=== PATIENT | female | born 1950 | race Caucasian/White ===

== ENCOUNTER 2024-02-11 15:25 | Emergency (ER) | payer OTHER ==
[2024-02-11 16:05] VITALS: BP 139/77; PULSE 65; RESP 17; BMI 29.2
[2024-02-11] MEDS ORDERED: FAMOTIDINE 20 MG/50 ML IVPB 20 MG/50 ML MG IVPB ONE (17:33)
[2024-02-11] MEDS ORDERED: METOCLOPRAMIDE HCL INJECTION 10 MG/2 ML VIAL ONE (17:33)
[2024-02-11] MEDS ORDERED: ACETAMINOPHEN INJECTION 100 ML ONE (17:33)
[2024-02-11] MEDS: FAMOTIDINE 20 MG/50 ML IVPB 20 MG/50 ML MG IVPB ONE (18:03)
[2024-02-11] MEDS: METOCLOPRAMIDE HCL INJECTION 10 MG/2 ML VIAL IVPUSH ONE (18:03)
[2024-02-11] MEDS: ACETAMINOPHEN 1000 MG/100 ML BAG IVPB ONE (18:03)
[2024-02-11] MEDS: LACTATED RINGERS SOLUTION 1000 ML INFUS.BAG IV ONE (18:42)
[2024-02-11 20:24] LABS: BASO % 0.2 % (0-2.0); HEMATOCRIT 40.2 % (32.4-45.2); HEMOGLOBIN 13.1 GM/dL (10.7-15.3); LYMPH % 7.9 % (8-40); MCH 28.3 pg (25.7-33.7); MCHC 32.6 g/dl (32.0-36.0); MEAN CELL VOLUME 86.7 fl (80-96); MEAN PLT VOLUME 8.5 fl (7.5-11.1); MONO % 2.7 % (3.8-10.2); NEUT % 89.2 % (42.8-82.8); PLATELET COUNT 211 10^3/uL (134-434); RBC 4.64 M/mm3 (3.60-5.2); WHITE BLOOD COUNT 9.4 K/mm3 (4.0-10.0)
[2024-02-11 20:40] LABS: INR 1.01 (0.83-1.09); POTASSIUM 3.9 mmol/L (3.5-5.1); PROTHROMBIN TIME (PATIENT) 11.6 SEC (9.7-13.0)
[2024-02-11 20:42] LABS: ALBUMIN 3.8 g/dl (3.4-5.0); BLOOD UREA NITROGEN 15.7 mg/dL (7-18); CALCIUM 9.2 mg/dL (8.5-10.1)
[2024-02-11 20:43] LABS: ACTIVATED PTT 29.7 SECONDS (25.2-36.5)
[2024-02-11 20:45] LABS: CREATININE 0.6 mg/dL (0.55-1.3)
[2024-02-11 20:47] LABS: BILIRUBIN,TOTAL 0.6 mg/dL (0.2-1)
[2024-02-11 21:09] LABS: PH,URINE 6.5 (5.0-8.0); URINE APPEARANCE CLEAR; URINE BILIRUBIN NEGATIVE (NEGATIVE); URINE COLOR YELLOW; URINE GLUCOSE (UA) NEGATIVE (NEGATIVE); URINE KETONE TRACE (NEGATIVE); URINE LEUK ESTERASE NEGATIVE (NEGATIVE); URINE NITRITE NEGATIVE (NEGATIVE); URINE PROTEIN NEGATIVE (NEGATIVE); URINE UROBILINOGEN 0.2 mg/dL (0.2-1.0)
[2024-02-11] MEDS ORDERED: ONDANSETRON *ODT* 4 MG TABLET ONE (22:04)
[2024-02-11] MEDS: ONDANSETRON 4 MG TABLET PO ONE (22:10)
== END 2024-02-11 22:33 | disposition home or self-care (01) ==
LOC: JER 15:25
PROC: 3E033GC Introduction of Other Therapeutic Substance into Peripheral Vein, Percutaneous Approach (ICD-10-PCS; principal; 2024-02-11)
PROC: 3E033NZ Introduction of Analgesics, Hypnotics, Sedatives into Peripheral Vein, Percutaneous Approach (ICD-10-PCS; 2024-02-11)
PROC: 3E033GC Introduction of Other Therapeutic Substance into Peripheral Vein, Percutaneous Approach (ICD-10-PCS; 2024-02-11)
DX: R51.9 Headache, unspecified (principal); B34.9 Viral infection, unspecified; R42 Dizziness and giddiness; R05.9 Cough, unspecified; R06.02 Shortness of breath; R11.2 Nausea with vomiting, unspecified; R19.7 Diarrhea, unspecified; G43.909 Migraine, unspecified, not intractable, without status migrainosus; H53.149 Visual discomfort, unspecified; R53.81 Other malaise; Z20.822 Contact with and (suspected) exposure to COVID-19
CPT/HCPCS: 0241U-QW; 71045-TC-FY; 80053; 81003; 83690; 83735; 85025; 85610; 85730; 87086; 93005; 93010; 99285-25; J0131